=== PATIENT | male | born 1965 | race Caucasian/White ===

== ENCOUNTER 2019-05-28 10:15 | Day surgery (SDC) | payer BC ==
[2019-05-28] MEDS ORDERED: Propofol 200 MG/20 ML SDV ONE ×3 (11:15→12:17)
[2019-05-28] MEDS ORDERED: Midazolam 1 MG/ML 2 ML SDV ONE (11:15)
[2019-05-28] MEDS ORDERED: fentaNYL 100 MCG/2 ML SDV ONE (11:15)
[2019-05-28] MEDS ORDERED: Lactated Ringers 1,000 ML IV SCH (11:30)
[2019-05-28 13:34] VITALS: BP 113/59; PULSE 64
--- NOTE | 2019-05-31 09:11 | OR ---
DATE OF PROCEDURE: 05/28/2019 SURGEON: Fredy Tabor MD PREOPERATIVE DIAGNOSIS: Colon cancer screening. POSTOPERATIVE DIAGNOSIS: Diverticulosis. PROCEDURE: Colonoscopy to the cecum. ANESTHESIA: IV anesthesia with monitored anesthesia care. INDICATION: This 53-year-old white male is referred for a colonoscopy for colon cancer screening. He says his last colonoscopic exam was done 10 years ago. Indication for the procedure at that time was blood in stool. I counseled him for the procedure, including risks and alternatives, and he gave his informed consent to proceed. DESCRIPTION OF PROCEDURE: The patient was placed in the left lateral decubitus position. IV anesthesia was administered by the anesthesia service. Time-out was held. A rectal exam was performed, which was unremarkable. The flexible video Olympus colonoscope was introduced through his anus, up his rectum and out his colon, all the way to the cecum. To accomplish this, we did have to apply some abdominal compression. Once the cecum was reached, the scope was slowly withdrawn examining the mucosa throughout. No mucosal abnormalities were noted until we reached the left colon. Here, in the sigmoid colon, we saw rare scattered diverticula. There was no bleeding or inflammation associated with any of them. The scope was retroflexed in the rectum with the distal rectum appearing unremarkable. The scope was straightened and removed. He tolerated the procedure well. Fredy Tabor MD /[id number]
== END 2019-05-28 13:35 | disposition home or self-care (01) ==
LOC: JP.SDS 10:15
PROVIDERS: ATTEND Surgery
DX: Z12.11 Encounter for screening for malignant neoplasm of colon (principal); K57.30 Diverticulosis of large intestine without perforation or abscess without bleeding; I10 Essential (primary) hypertension
CPT/HCPCS: 45378; J2250; J2704; J3010; J7120